=== PATIENT | female | born 1965 | race Hispanic/Latino ===

== ENCOUNTER 2018-07-04 16:56 | Emergency (ER) | payer OTHER ==
[~2018-07-04] VITALS: Ht 149.9 cm; Wt 57.2 kg
--- NOTE | 2018-07-04 17:58 | Diagnostic Imaging Report ---
EXAMINATION: CXR 2 VIEW - HOPD INDICATION: Chest pain when breathing COMPARISON: None FINDINGS: TUBES and LINES: None. LUNGS: Lungs are well inflated. Bilateral peribronchial cuffing. There is no evidence of pneumonia or pulmonary edema. PLEURA: No pleural effusion or pneumothorax. HEART AND MEDIASTINUM: The cardiomediastinal silhouette is unremarkable. BONES AND SOFT TISSUES: No acute osseous lesion. Soft tissues are unremarkable. UPPER ABDOMEN: No free air under the diaphragm. IMPRESSION: Bilateral peribronchial cuffing, which could represent viral etiology or reactive airway disease. Signed by: Dr. Collin Navarrete M.D. on 07/04/2018 5:55 PM
[2018-07-04 18:03] VITALS: BP 125/77
== END 2018-07-04 18:09 | disposition home or self-care (01) ==
LOC: FSED 16:56
DX: R50.9 Fever, unspecified (principal); R05 Cough; J20.8 Acute bronchitis due to other specified organisms
CPT/HCPCS: 71046; 83518; 87400; 93005; 99283

== ENCOUNTER 2020-04-09 11:20 | Emergency (ER) | payer BC, OTHER ==
[~2020-04-09] VITALS: Ht 149.9 cm; Wt 58.1 kg
[2020-04-09] MEDS ORDERED: DOXYCYCLINE HY100 M3 PO (12:43)
[2020-04-09] MEDS ORDERED: PROAIR HFA INH8.5 GM PO (12:43)
[2020-04-09] MEDS ORDERED: CYCLOBENZAPRINE5 MG PO (12:43)
[2020-04-09] MEDS ORDERED: METFORMIN HCL500 MG PO (12:43)
[2020-04-09] MEDS ORDERED: BROMFED DM COU118 ML PO (12:43)
== END 2020-04-09 12:45 | disposition home or self-care (01) ==
LOC: FSED 11:25
DX: U07.1 COVID-19 (principal); J18.9 Pneumonia, unspecified organism; J98.01 Acute bronchospasm; E11.9 Type 2 diabetes mellitus without complications
CPT/HCPCS: 99282

== ENCOUNTER 2025-02-17 16:34 | Emergency (ER) | payer OTHER ==
[~2025-02-17] VITALS: Ht 147.3 cm; Wt 48.3 kg
[~2025-02-17 16:34] MED LIST: BROMFED DM COU118 ML PO; CYCLOBENZAPRINE5 MG PO; DOXYCYCLINE HY100 M3 PO; METFORMIN HCL500 MG PO; PROAIR HFA INH8.5 GM PO
[2025-02-17] MEDS ORDERED: TRIJARDY XR 121 EACH (17:12)
[2025-02-17] MEDS ORDERED: DOXYCYCLINE HY100 MG PO (17:40)
[2025-02-17] MEDS ORDERED: BROMFED DM COU118 ML PO (17:40)
[2025-02-17] MEDS ORDERED: BENZONATATE100 MG PO (17:40)
[2025-02-17] MEDS: PREDNISONE 20 MG TAB PO ONE (17:49)
[2025-02-17] MEDS: HYDROCODONE/APAP 5MG-325MG TAB PO ONE (17:50)
[2025-02-17 18:35] VITALS: PULSE 70; RESP 16; TEMP 98.2; O2SAT 100
== END 2025-02-17 18:12 | disposition home or self-care (01) ==
LOC: FSED 16:51
DX: R05.9 Cough, unspecified (principal); J06.9 Acute upper respiratory infection, unspecified; E11.9 Type 2 diabetes mellitus without complications; Z11.52 Encounter for screening for COVID-19; R94.31 Abnormal electrocardiogram [ECG] [EKG]
CPT/HCPCS: 0223U; 71046; 83518; 87400; 93005; 99283; J7512